=== PATIENT | male | born 1975 | race Caucasian/White ===

== ENCOUNTER 2017-03-16 20:41 | Emergency (ER) | payer BC ==
[2017-03-16 21:33] LABS: Hematocrit 41.8 % (42.0-52.0); Hemoglobin 14.3 gm/dL (13.5-18.0); Mean Cell Volume 91.9 fl (78-100); Mean Corpuscular Hemoglobin 31.4 pg (27-31); Mean Corpuscular Hgb Conc 34.2 g/dl (32-36); Neutrophil # 4.5 K/mm3 (1.3-6.0); Platelet Count 247 K/mm3 (150-450); Red Blood Count 4.55 M/mm3 (4.7-6.0); Red Cell Distribution Width 12.7 % (11.5-14.0); White Blood Count 8.2 K/mm3 (4.0-10.5)
[2017-03-16 21:44] LABS: Prothrombin Time (Patient) 9.5 Seconds (9.4-11.4)
[2017-03-16 21:45] LABS: ALT 67 U/L (19-67); AST 28 U/L (0-48); Albumin * 3.8 gm/dl (3.4-5.0); Alkaline Phosphatase * 79 U/L (50-170); Anion Gap 13.1 mmol/L (6.8-13.8); BUN/Creatinine Ratio 16.8 (9.0-21.6); Bilirubin, Total 0.4 mg/dL (0.0-1.1); Blood Urea Nitrogen 17 mg/dL (6-23); Ca. Corrected For Albumin 8.8 mg/dL (8.4-10.2); Carbon Dioxide 25.9 mmol/L (24-32.6); Chloride 106 mmol/L (97-106); Glucose * 125 mg/dL (70-110); Sodium 141 mmol/L (132-142); Total Protein 7.2 gm/dL (6.2-8.2)
[2017-03-16 21:48] LABS: INR 0.91 INR (0.90-1.10); Partial Thrombolplastin Time 20.6 Seconds (24-32); Troponin I Less than 0.017 ng/ml (0.00-0.10)
--- NOTE | 2017-03-16 22:01 | ERNOTE ---
Chest Pain/Cardiac HPI Date of Service: 03/16/17 Chief Complaint: Chest Pain Time Seen by Provider: 03/16/17 22:00 Source: patient, family - . Immunizations: IMMUNIZATION HX Immunizations Up to Date No History of Influenza Vaccine Yes Hx Pneumococcal Vaccination No Allergies/Adverse Reactions: Allergies No Known Allergies Allergy (Verified 03/16/17 21:00) Home Medications: HOME MEDICATIONS Calcium Carbonate [Tums] 500 mg PO DAILY PRN 11/23/15 [Last Taken Unknown] Narrative: PT SAYS HE HAS HAD RIGHT UPPER CHEST SORENESS SINCE 0400 TODAY. HE RELATES HE HAS HAD THIS FEELING BEFORE AND HAS HAD MULTIPLE ER VISITS FOR CHEST PAINS. HE DID HAVE AN EPISODE OF WHAT SOUNDS LIKE , A VIRAL PERICARDITIS IN 2014 AND WAS SEEN AND EVALUATED AT OR [facility]. HE ALSO SAYS HIS JOB ENTAILS REPETITIVE MOTION USING HIS RIGHT ARM AND HIS CURRENT CHEST PAIN IS REPLICATED BY MOVEMENT OF RIGHT ARM AND SHOULDER. HE HAS HAD MULTIPLE ECHOS AND EVEN A NUCLEAR STRESS TEST N JUN 2016 , SINCE THE PERICARDITIS WHICH HAVE BEEN NEGATIVE. HIS ALSO RELATES THAT HE SNORES ALOT AT NIGHT AND HE IS A RATHER OBESE MAN. HE HAS NEVER BEEN EVALUATED FOR SLEEP APNEA. Review of Systems - Review of Systems Constitutional: Present: See HPI EYE: Present: no symptoms reported ENT: Present: no symptoms reported Respiratory: Present: no symptoms reported Cardiology: Present: chest pain Gastrointestinal/Abdominal: Present: no symptoms reported Genitourinary: Present: no symptoms reported Musculoskeletal: Present: no symptoms reported Skin: Present: no symptoms reported Neurological: Present: no symptoms reported Endocrine: Present: no symptoms reported Hematologic/Lymphatic: Present: no symptoms reported Psych: Present: no symptoms reported All Other Systems: All systems neg except as marked - Patient's Past Medical History Patient History - Medical: Anxiety, Depression, GERD, Other Patient History - Cardiac/Respiratory: Other Patient History - Cancer: No Hx of Cancer Patient History - Surgical Procedures: Other Patient History - Other: None - Social History Living Situations: spouse Abuse History: No History of abuse Psych History: No pertinent hx Smoking Status: Former smoker Alcohol Use: none Drug Use: none - Immunizations Immunizations Up to Date: No Hx Pneumococcal Vaccination: No History of Influenza Vaccine: Yes Physical Exam - Physical Exam General Appearance: Present: wd/wn, alert, no apparent distress - OBESE MAN. A & O & COOP VSS. Ears, Nose, Throat: Present: normal ENT inspection Neck: Present: normal inspection Respiratory: Present: no respiratory distress, normal breath sounds, no accessory muscle use, lungs clear, chest tenderness - WITH LIFTING AND ROTATING OPF SHOULDER TO AN AREA IN MID UPPER PEC. AREA. Cardiovascular/Chest: Present: regular rate, rhythm, no murmur, normal peripheral pulses Peripheral Pulses: N=norm/S=strong/W=weak/B=bound/A=absent: Dorsalis-pedis (R): Normal, Dorsalis-pedis (L): Normal Gastrointestinal/Abdominal: Present: normal bowel sounds, nontender, nondistended, soft, no organomegaly Extremity Exam: Present: normal inspection, normal range of motion, no edema Neurological Exam: Present: alert, oriented ED Progress - Results and Orders Patient's Lab Results:: I have reviewed the patient's lab results. Results and Orders: LABS INCLUDING TROP. = NL. - Vital Signs Patient's Vital Signs:: I have reviewed the patient's vital signs. Vital Signs: Vital Signs 03/16/17 03/16/17 20:56 21:45 Temperature 36.8 C Pulse Rate 86 80 Respiratory 16 18 Rate Blood Pressure 157/96 121/88 O2 Sat by Pulse 96 95 Oximetry - EKG EKG: NSR EKG read: Interp. by me - X-Ray X-Ray #1 X-Ray: chest Interpretation: Interp. by me X-ray Comments: SL ENLARGED HEART WITH PROMINENT RIGHT UPPER HEART CONTOUR THAT IS UNCHANGED FROM PREVIOUS XRAYS. - Progress/Reassessment Chief Complaint: Chest Pain Progress:: Improved Departure - Departure Clinical Impression: Musculoskeletal chest pain Chest pain Qualifiers: Chest pain type: other chest pain Qualified Code(s): R07.89 - Other chest pain ; R07.8 - Other chest pain Disposition: Home Follow Up Needed Condition: Good Instructions: Chest Pain Observation Additional Instructions: TRIAL OF IBUPROFEN , 600 MG EVERY 8 HOURS WITH USE OF WARM COMPRESSES TO SORE AREA AND CONSIDER USING "MUSCLE RUBS" LIKE BIO FREEZE OR ICY -HOT TO SORE AREA. DISCUSS WITH YOUR DR ON SUNDAY TO SEE IF HE WANTS FURTHER EVALUATION GIVEN YOUR PAST PROBLEMS OR IF HE THINKS EVALUATION FOR POSSIBLE OBSTRUCTIVE SLEEP APNEA IS WARRANTED. RETURN TO THE ER IF WORSE. Referrals: Wicho Watson MD [Primary Care Provider] -
--- OUTSIDE RECORDS SUMMARY | 2017-03-16 22:12 | XMS REPORT | Continuity of Care Document ---
:1975 Author Organization [facility] ([facility]) Address [address] [place] [address] Phone [phone] Care Team Providers Name Role Phone Wicho Galarza Primary Care Provider [phone] Source Comments This disclosure is being made pursuant to the Care Everywhere program, applicable federal and state laws, and may not contain all informaitonavailable regarding this patient.[facility] ([facility]) Active Allergies and Adverse Reactions Allergen Noted Date Severity Reactions Comments Bee Stings 05/15/2013 Angioedema Poison Thi Extract 05/15/2013 Unknown Poison Thi and Poison [place] allergy Current Medications Prescription Sig. Disp. Refills Start Date End Date Status albuterol 90 Use 2 Puffs by Active mcg/Actuation inhaler inhalation every 6 hours as needed potassium chloride 20 Take 20 mEq by mouth Active mEq XR tablet daily furosemide 80 mg tablet Take 80 mg by mouth Active daily pantoprazole 40 mg EC Take 40 mg by mouth Active tablet daily Active Problems Problem Noted Date Acute viral pericarditis 07/19/2015 Pericardial effusion 07/15/2015 Elevated liver enzymes 07/15/2015 Hypogonadism male 08/15/2013 Oligospermia 05/23/2013 Resolved Problems Problem Noted Date Resolved Date SIRS (systemic inflammatory response syndrome) 07/16/2015 07/20/2015 Cough 07/15/2015 07/20/2015 Dyspnea 07/15/2015 07/20/2015 Immunizations Name Dates Previously Given Next Due Influenza, quadrivalent PF 07/19/2015 Social History Tobacco Use Types Packs/Day Years Used Date Former Smoker 3 13 Quit: 10/15/2009 Smokeless Tobacco: Never Used Alcohol Use Drinks/Week oz/Week Comments No Last Filed Vital Signs Vital Sign Reading Time Taken Blood Pressure 118/70 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 Pulse 80 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 Temperature 36.9 C (98.4 F) 07/20/2015 9:39 AM CDT Respiratory Rate 18 07/20/2015 9:39 AM CDT Height 1.803 m (5' 11") 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
[2017-03-17 02:44] VITALS: BP 126/78
== END 2017-03-16 23:04 | disposition home or self-care (01) ==
LOC: ER 20:41
DX: R07.89 Other chest pain (principal); Z87.891 Personal history of nicotine dependence

== ENCOUNTER 2017-11-21 07:10 | Emergency (ER) | payer BC ==
[2017-11-21 07:18] VITALS: BP 128/75
[2017-11-21] MEDS ORDERED: KETOROLAC TROMETHAMINE 60 MG/2 ML VIAL IM ONE ×2 (07:28→07:29)
--- NOTE | 2017-11-21 07:43 | ERNOTE ---
Lower Extremity HPI - General Lower Extremities Pain: knee: left - medial pain Time Seen by Provider: 11/21/17 07:19 Source: patient Exam Limitations: no limitations - Immun/Allergies/Home Medications Immunizations: IMMUNIZATION HX Immunizations Up to Date Yes History of Influenza Vaccine No Hx Pneumococcal Vaccination No Allergies/Adverse Reactions: Allergies Allergy/AdvReac Type Severity Reaction Status Date / Time No Known Allergies Allergy Verified 03/16/17 21:00 Home Medications: HOME MEDICATIONS Calcium Carbonate [Tums] 500 mg PO DAILY PRN 11/23/15 [Last Taken Unknown] - History of Present Illness Narrative: pt woke up with left medial knee pain. No known injury. He did go jogging a week ago and his leg muscles were sore but did not have this pain until today Occurred: this morning Method of Injury: Reports: unknown Modifying Factors - (Worsens): Reports: movement Other Injuries: Reports: none Review of Systems - Review of Systems Constitutional: Absent: recent illness Respiratory: Absent: shortness of breath Cardiology: Absent: chest pain Musculoskeletal: Present: See HPI. Absent: back pain Endocrine: Absent: excessive sweating, flushing - Patient's Past Medical History Patient History - Medical: Anxiety, Depression, GERD, Other Patient History - Cardiac/Respiratory: Other Patient History - Cancer: No Hx of Cancer Patient History - Surgical Procedures: Other Patient History - Other: None - Social History Living Situations: home Abuse History: No History of abuse Psych History: Hx of Anxiety, Hx of Depression Smoking Status: Former smoker Have you smoked in the past 12 months: No Do you dip or chew tobacco: No Alcohol Use: sober Drug Use: none - Immunizations Immunizations Up to Date: Yes Hx Pneumococcal Vaccination: No History of Influenza Vaccine: No Physical Exam - Physical Exam General Appearance: Present: wd/wn, alert, no apparent distress Head Exam: Present: normal inspection, no evidence of injury Respiratory: Present: no respiratory distress, no accessory muscle use Peripheral Pulses: N=norm/S=strong/W=weak/B=bound/A=absent: Dorsalis-pedis (L): Normal Extremity Exam: Present: normal except - - tenderness medial left knee 2 cm below joint space., other - ligaments intact. Absent: joint redness, joint swelling Neurological Exam: Present: alert, oriented, normal mood/affect, no motor/ sensory deficits Skin Exam: Present: normal color, warm/dry ED Progress - Vital Signs Vital Signs: Vital Signs 11/21/17 07:13 Temperature 36.1 C L Pulse Rate 76 Respiratory 14 Rate Blood Pressure 128/75 O2 Sat by Pulse 95 Oximetry - Progress/Reassessment Chief Complaint: Lower Extremity Pain/ Injury Departure Clinical Impression: Pes anserine bursitis - Departure Disposition: Home self-care Condition: Good Instructions: Bursitis, [id number], Cryotherapy, [id number] Additional Instructions: You may take 3-4 ibuprofen 3 times a day for 10-14 days. Keep your knee wrapped anytime your are on your feet until it is feeling better. See your primary care provider if not improving in 7-10 days. Use ice 3-4 times a day for 10-15 minutes at a time Referrals: Wicho Watson MD [Primary Care Provider] -
== END 2017-11-21 07:38 | disposition home or self-care (01) ==
LOC: ER 07:10
DX: M71.9 Bursopathy, unspecified (principal)